=== PATIENT | female | born 1975 ===

== ENCOUNTER 2022-12-19 13:22 | Outpatient (REF) | payer BC, SELFPAY ==
[2022-12-19 14:30] LABS: HGB 12.5 g/dL (11.2-15.7); MCH 29.7 pg (27.0-33.0); MCHC 32.1 % (32.0-36.0); MCV 93 fL (80-95); MPV 10.8 fL (8.0-11.0); Platelet Count 294 10^3/uL (130-400); RBC 4.21 10^6/uL (3.93-5.22); RDW 13.2 % (11.7-14.6); WBC 7.76 10^3/uL (4.4-10.8)
[2022-12-19 14:57] LABS: Anion Gap 4.8 mmol/L (3-11); BUN 7 mg/dL (7-18); CO2 29.2 mmol/L (21.0-32.0); CREATININE 0.9 mg/dL (0.55-1.02); Calculated LDL 93 mg/dL (<100); Chloride 105 mmol/L (98-107); Cholesterol 205 mg/dL (<200); Estimated GFR 78.86 (mL/min/1.73m2); Glucose 99 mg/dL (74-106); HDL Cholesterol 75 mg/dL (40-60); Potassium 4.5 mmol/L (3.5-5.1); Sodium 139 mmol/L (136-145); Triglyceride 189 mg/dL (<150)
== END 2022-12-19 13:23 | disposition home or self-care (01) ==
LOC: NCHCN 13:22
PROVIDERS: Visit Provider Family Medicine
DX: Z78.0 Asymptomatic menopausal state (principal); Z00.00 Encounter for general adult medical examination without abnormal findings
CPT/HCPCS: 80048; 80061; 85027

== ENCOUNTER 2024-04-07 15:34 | Outpatient (REF) | payer BC, SELFPAY ==
[2024-04-07 17:58] LABS: Calculated LDL 93 mg/dL (<100); Cholesterol 211 mg/dL (<200); Glucose 98 mg/dL (74-106); HDL Cholesterol 64 mg/dL (40-60); Triglyceride 271 mg/dL (<150)
== END 2024-04-07 15:35 | disposition home or self-care (01) ==
LOC: NCHCN 15:34
PROVIDERS: Visit Provider Family Medicine
DX: Z00.00 Encounter for general adult medical examination without abnormal findings (principal)
CPT/HCPCS: 80061; 82947

== ENCOUNTER 2024-04-14 18:25 | Outpatient (REF) | payer BC, SELFPAY ==
--- NOTE | 2024-04-14 16:30 | PAPFT_PTH ---
PATIENT: Chyna Tolentino LOC: [facility] U#:[id number] AGE/SX: 48/F ROOM: RE04/14/[address]: Adriana Randle : 1975 BED: DIS: 04/14/2024 SPEC #: [id number] RECD: 04/15/24 12:47 STATUS: BILL REQ #: [id number] JASON: 04/14/24 16:[address]: Adriana Randle DEPT: [facility] Cytology RECD BY: Sunshine Hilton ENTERED: 04/15/24 12:47 SP TYPE: PAPFT JOHN DR: Unknown,Unknown Tissues: 1 - CX/ENDOCX FOR PAP SMEARS Procedures: PAP THIN PREP/[facility] Screening HPV DNA PROBE Comments: [id number] (HPV 16 & 18/45)
--- OUTSIDE RECORDS SUMMARY | 2024-04-14 18:30 | XMS_ITS ---
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 COMPARISON: No exams were available for comparison FINDINGS: NUMBER OF VIEWS: 3 There is no evidence of fracture nor dislocation. There are no abnormal soft tissue calcifications. The subacromial space is not diminished. Bone density is normal and there are no significant osseous lesions. IMPRESSION: No significant findings Report Digitally Signed by Filemon Mackey on 10/21/2022 03:08 PM EDT Social History Type Status Start Date End Date Code Code Syst em Smoking History Never smoker (Never Smoked) 667723133 SNOMED CT Sex Female Medications Medication Start Date End Date Route Frequency Dose Code Code System Medication Instructions Home Meds Augmentin 875MG-125MG Oral Tablet 03/12/2024 Unknown ORAL TWICE A DAY 1 TABLET 091005 RxNorm TAKE 1 TABLET ORAL TWICE A DAY x 7 days Hospital Discharge Instructions Should you have any questions prior to discharge, please contact a member of your healthcare team. If you have left the hospital and have any questions, please contact your primary care physician. Reason For Referral No Data Found Allergies and Adverse Reactions Allergy Substance Reaction Severity Start Date Concern Status Co de Code System PHENERGAN Active 802697 RxNorm KETOROLAC TROMETHAMINE Active 16949 R xNorm Plan of Treatment No Data Found Encounters Encounter Diagnosis Start Date Code Code Sys tem 10/21/2022 [id number] SNOMED-CT Personal Care Team Section Performer Name Performer Role Active Date Inactive Da te
--- OUTSIDE RECORDS SUMMARY | 2024-04-14 18:30 | XMS_ITS ---
Author Organization Unknown Address [address] [place] [address] [phone] Phone Care Team Providers Care Router Machine Operator Name Role Phone JACOBO JERI Burnett Attending Unavailable ARACELY CHLOE Primary Unavailable Social History Type Status Start Date End Date Code Code Syst em Smoking History Never smoker (Never Smoked) 825053122 SNOMED CT Sex Female Medications Medication Start Date End Date Route Frequency Dose Code Code System Medication Instructions Home Meds Augmentin 875MG-125MG Oral Tablet 03/12/2024 Unknown ORAL TWICE A DAY 1 TABLET 475153 RxNorm TAKE 1 TABLET ORAL TWICE A [...] Status Co de Code System PHENERGAN Active 877089 RxNorm KETOROLAC TROMETHAMINE Active 21246 R xNorm Plan of Treatment No Data Found Encounters Encounter Diagnosis Start Date Code Code Sys tem Strain of tendon of upper arm 12/24/2022 179767304 SNOMED-CT Personal Care Team Section Performer Name Performer Role Active Date Inactive Da te
--- OUTSIDE RECORDS SUMMARY | 2024-04-14 18:30 | XMS_ITS ---
Author Organization Unknown Address [address] [place] [phone] Phone Care Team Providers Care Diesel Locomotive Firer/Fireman Name Role Phone JACOBO Burnett Attending Unavailable KATLIN Multani Primary Unavailable Social History Type Status Start Date End Date Code Code Syst em Smoking History Never smoker (Never Smoked) 507925182 SNOMED CT Sex Female Medications Medication Start Date End Date Route Frequency Dose Code Code System Medication Instructions Home Meds Augmentin 875MG-125MG Oral Tablet 03/12/2024 Unknown ORAL TWICE A DAY 1 TABLET 851905 RxNorm TAKE 1 TABLET ORAL TWICE A [...] Status Co de Code System PHENERGAN Active 623487 RxNorm KETOROLAC TROMETHAMINE Active 15761 R xNorm Plan of Treatment No Data Found Encounters Encounter Diagnosis Start Date Code Code Sys tem 10/23/2022 [id number] SNOMED-CT Personal Care Team Section Performer Name Performer Role Active Date Inactive Da te
--- OUTSIDE RECORDS SUMMARY | 2024-04-14 18:31 | XMS_ITS ---
Author Organization Unknown Address [address] [place] [address] [phone] Phone Care Team Providers Care Robotics Technologist Name Role Phone ANAMARIA Plasencia Attending Unavailable ARACELY FARRIS Primary Unavailable Social History Type Status Start Date End Date Code Code Syst em Smoking History Never smoker (Never Smoked) 812723724 SNOMED CT Sex Female Medications Medication Start Date End Date Route Frequency Dose Code Code System Medication Instructions Home Meds Augmentin 875MG-125MG Oral Tablet 03/12/2024 Unknown ORAL TWICE A DAY 1 TABLET 485741 RxNorm TAKE 1 TABLET ORAL TWICE A [...] Status Co de Code System PHENERGAN Active 161892 RxNorm KETOROLAC TROMETHAMINE Active 22389 R xNorm Plan of Treatment No Data Found Encounters Encounter Diagnosis Start Date Code Code Sys tem Active immunization 04/21/2023 57604008 SNOMED-C T Personal Care Team Section Performer Name Performer Role Active Date Inactive Da te
--- OUTSIDE RECORDS SUMMARY | 2024-04-14 18:31 | XMS_ITS ---
Author Organization Unknown Address [address] [place] [phone] Phone Care Team Providers Care Executive Receptionist Name Role Phone GREGORIA GODINEZ Registered Nurse Unavailable ARMANDO Santos Attending Unavailable MATEO Burnett ER Unavailable ARACELY BRENTON Primary Unavailable UNLISTED PROVIDER - REQUESTED Xhandoff Un available Results CBC W/ DIFFERENTIAL* - Colle ct Date/Time: 03/12/2024 12:32 [facility] ID: [id number] [address] [place], [place], [address] LOINC: 28148-7 Test Value Unit Reference Range Code Code System Flag WBC 14.39 th/cmm L=5.00 H=10.00 6690-2 LOINC H NEUT % 84.3 % L=40.0 H=80.0 H LYMPH % 9.8 % L=10.0 H=50.0 L MONO % 5.0 % L=2.0 H=12.0 16935-1 LOINC EOS % 0.3 % L=0.0 H=8.0 BASO % 0.3 % L=0.0 H=3.0 IG % 0.3 % L=0.0 H=1.1 2514-8 LOINC NRBC % 0.0 % L=0.0 H=0.0 38773-9 LOINC NEUT abs count 12.1 th/cmm L=1.6 H=8.4 751-8 LOINC H LYMPH abs count 1.4 th/cmm L=1.5 H=4.0 731-0 LOINC L MONO abs count 0.7 th/cmm L=0.2 H=1.0 742-7 LOINC EOS abs count 0.1 th/cmm L=0.0 H=0.5 711-2 LOINC BASO abs count 0.1 th/cmm L=0.0 H=0.2 704-7 LOINC IG abs count 0.1 th/cmm L=0.0 H=0.1 09675-2 LOINC NRBC abs count 0.0 mil/cmm L=0.0 H=0.0 79808-3 LOINC RBC 4.07 mil/cmm L=3.90 H=5.40 789-8 LOINC HEMOGLOBIN 12.1 gm/dL L=12.0 H=16.0 718-7 LOINC HEMATOCRIT 37 % L=37 H=47 4544-3 LOINC MCV 90 fL L=82 H=92 787-2 LOINC MCH 29.7 pg L=27.0 H=31.0 785-6 LOINC MCHC 33.1 % L=32.0 H=36.0 786-4 LOINC RDW-SD 43.8 fL L=39.0 H=49.0 788-0 LOINC PLATELET COUNT 230 th/cmm L=150 H=450 777-3 LOINC TEST QUAL (URINE) - Collect Date/Time: 03/12/2024 10:31 [facility] ID: [id number] [address] [place], [place], [address] LOINC: 2106-3 Test Value Unit Reference Range Code Code System Flag TEST NEGATIVE 2105-3 LOINC URINALYSIS WITH REFLEX CULT IF POSITIVE* - Collect Date/Time: 03/12/2024 10:31 [facility] ID: [id number] [address] [place], [place], [address] LOINC: 94140-8 Test Value Unit Reference Range Code Code System Flag COLLECTION MODE: CLEAN CATCH 26093-8 LOINC Color YELLOW yellow 5778-6 LOINC Appearance CLEAR clear 5767-9 LOINC Glucose urine NEGATIVE negative mg/dl 67763-1 LOINC Bilirubin NEGATIVE negative 5770-3 LOINC Ketones NEGATIVE negative mg/dl 2514-8 LOINC Spec gravity 1.010 1.003 - 1.030 5811-5 LOINC pH urine 7.0 5.0 - 7.0 2756-5 LOINC Protein NEGATIVE negative mg/dl 38241-9 LOINC Urobilinogen 0.2 <or= 1 EU/dl 29958-9 LOINC Nitrite. NEGATIVE negative 5802-4 LOINC Blood SMALL negative 5794-3 LOINC A Leukocytes. TRACE negative A MICROSCOPIC INDICATED WBCs. 0-5 0-5 / hpf 09813-9 LOINC RBCs 0-5 0-5 / hpf 68254-4 LOINC Epith cells 0-5 0-5 / hpf 80023-7 LOINC Cell types squamous Crystals none none Bacteria minimal none Mucus none none 8247-9 LOINC Casts none none /lpf 31317-3 LOINC Other 53775-7 LOINC MAGNESIUM SERUM* - Collect D ate/Time: 03/12/2024 10:00 [facility] ID: [id number] [address] [place] [address], [address] LOINC: 69620-7 Test Value Unit Reference Range Code Code System Flag MAGNESIUM 1.9 mg/dL L=1.8 H=2.4 94103-0 LOINC LIPASE* NEW - Collect Date/T angel: 03/12/2024 10:00 [facility] ID: [id number] [address] [place] [address], [phone] LOINC: 3040-3 Test Value Unit Reference Range Code Code System Flag LIPASE. 22 U/L L=16 H=77 COMPREHENSIVE METABOLIC PANE L (CMP) - Collect Date/Time: 03/12/2024 10:00 [facility] ID: [id number] [address] [place] [address], [address] LOINC: 68897-0 Test Value Unit Reference Range Code Code System Flag GLUCOSE 93 mg/dL L=70 H=116 2345-7 LOINC BUN 6 mg/dL L=6 H=25 3094-0 LOINC CREATININE 0.94 mg/dL L=0.51 H=0.95 2160-0 LOINC SODIUM SERUM 137 mmol/L L=136 H=145 2951-2 LOINC POTASSIUM SERUM 4.1 mmol/L L=3.4 H=5.2 2823-3 LOINC CHLORIDE SERUM 100 mmol/L L=96 H=110 2075-0 LOINC CARBON DIOXIDE (CO2) 26 mmol/L L=22 H=34 2028-9 LOINC ANION GAP 10.6 mmol/L 19254-2 LOINC CALCIUM SERUM 9.4 mg/dL L=8.2 H=10.2 67140-2 LOINC BILIRUBIN TOTAL 0.4 mg/dL L=0.0 H=1.3 1975-2 LOINC ALK. PHOS. 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 Thank you for letting us participate in the care of this patient. If you are a health care provider and have any questions regarding this report, please contact the number below. For patients who have questions please contact the health pet caretaker that requested your imaging first. Electronically signed by: Kimo Cardenas MD [facility] ([phone]), at 03/12/2024 12:07 PM EXAMINATION: CT ABD PELVIS W IV CONTRAST ONLY CLINICAL HISTORY: LLQ Pain TECHNIQUE: Helical CT of the abdomen and pelvis following the intravenous administration of 96 mL of Omnipaque 350. Oral contrast was not administered. COMPARISON: None FINDINGS: Lower chest: Normal. Liver: Normal size and attenuation without lesions. Bile ducts: Nondilated. Gallbladder: Calcified gallstones layering in the gallbladder fundus and body. Normal caliber gallbladder wall. No pericholecystic fat stranding or fluid. Pancreas: Normal attenuation without ductal dilatation. Spleen: Normal. Adrenals: Normal. Kidneys: Normal. Urinary Bladder: Normal. Vasculature: No abdominal aortic aneurysm. The main portal vein, splenic vein, and SMV are patent. Lymph Nodes: No enlarged lymph nodes. Bowel: Normal appendix and terminal ileum. Diverticulosis. There is thickening of the sigmoid colon with surrounding fat stranding and inflammatory changes and fluid. No organized fluid collection. No free air. There is free fluid in the pelvis. Abdominal wall: Normal. Reproductive organs: Normal. Osseous structures: No suspicious lesions. IMPRESSION: 1. Acute uncomplicated sigmoid diverticulitis 2. Cholelithiasis without evidence for acute cholecystitis Thank you for letting us participate in the care of this patient. If you are a health care provider and have any questions regarding this report, please contact the number below. For patients who have questions please contact the health pet caretaker that requested your imaging first. Electronically signed by: Kimo Cardenas MD [facility] ([phone]), at 03/12/2024 11:56 AM -- Social History Type Status Start Date End Date Code Code Syst em Smoking History Never smoker (Never Smoked) 849226763 SNOMED CT Sex Female Vital Signs Vital Sign Value Unit [place] Value [place] Unit Date/Time Recent/Initial? Code Code System Body Mass Index 30.79 kg/m2 03/12/2024 09:18 Initial 86047 -5 LOINC Systolic Blood Pressure 134 mm[Hg] 03/12/2024 13:33 Most Recent 8480- 6 LOINC Diastolic Blood Pressure 62 mm[Hg] 03/12/2024 13:33 Most Recent 8462- 4 LOINC Systolic Blood Pressure 151 mm[Hg] 03/12/2024 09:18 Initial 8480- 6 LOINC Diastolic Blood Pressure 79 mm[Hg] 03/12/2024 09:18 Initial 8462- 4 LOINC Body Surface Area 1.96 m2 03/12/2024 09:18 Initial 3140- 1 LOINC Height 165.100 0 cm 65.00 in 03/12/2024 09:18 Initial 8302- 2 LOINC O2 Saturation 10 % 2023 13:33 Most Recent 22228 -5 LOINC O2 Saturation 100 % 2023 09:18 Initial 36315 -5 LOINC Pulse 68.0 /min 03/12/2024 13:33 Most Recent 8867- 4 LOINC Pulse 85.0 /min 03/12/2024 09:18 Initial 8867- 4 LOINC Respiration 16 /min 03/12/20 13:33 Most Recent 9279- 1 LOINC Respiration 14 /min 03/12/20 09:18 Initial 9279- 1 LOINC Temperature 36.6 Shannan 97.9 F 03/12/20 09:18 Initial 8310- 5 LOINC Weight 83.91 kg 185.00 lbs 03/12/2024 09:18 Initial 80044 -7 LOINC Medications Medication Start Date End Date Route Frequency Dose Code Code System Medication Instructions Home Meds Augmentin 875MG-125MG Oral Tablet 03/12/2024 Unknown ORAL TWICE A DAY 1 TABLET 400455 RxNorm TAKE 1 TABLET ORAL TWICE A [...] Status Co de Code System PHENERGAN Active 476819 RxNorm KETOROLAC TROMETHAMINE Active 35761 R xNorm Plan of Treatment No Data Found Encounters Encounter Diagnosis Start Date Code Code Sys tem Diverticulitis of intestine, part unspecified, without perforation or abscess without bleeding 03/12/2024 SNOMED-CT Personal Care Team Section Performer Name Performer Role Active Date Inactive Da te
== END 2024-04-14 18:26 | disposition home or self-care (01) ==
LOC: NCHCN 18:25
PROVIDERS: Visit Provider Family Medicine
DX: Z12.4 Encounter for screening for malignant neoplasm of cervix (principal)
CPT/HCPCS: 88142; 87624